=== PATIENT | female | born 1980 | race African-American/Black ===

== ENCOUNTER 2019-10-05 12:52 | Emergency (ER) | payer MEDICAID ==
[~2019-10-05] VITALS: Ht 172.7 cm; Wt 86.0 kg
[2019-10-05] MEDS ORDERED: KETOROLAC 60MG/2ML VIAL IM NR (13:40)
[2019-10-05] MEDS ORDERED: CYCLOBENZAPRINE 10MG TABLET PO NR (14:00)
[2019-10-05 15:00] VITALS: BP 151/88
== END 2019-10-05 15:01 | disposition home or self-care (01) ==
LOC: ER 12:52
DX: M43.6 Torticollis (principal)
CPT/HCPCS: 81025; 96372; 99283; J1885

== ENCOUNTER 2019-10-12 17:46 | Emergency (ER) | payer MEDICAID ==
[~2019-10-12] VITALS: Ht 165.1 cm; Wt 73.0 kg
[2019-10-12] MEDS ORDERED: KETOROLAC 60MG/2ML VIAL IM ONE (18:45)
[2019-10-12] MEDS ORDERED: ACETAMINOPHEN 325MG TABLET PO ONE (18:45)
[2019-10-12] MEDS ORDERED: CYCLOBENZAPRINE 10MG TABLET PO ONE (18:45)
[2019-10-12 19:55] LABS: CHLORIDE 108 mEq/L (98-107); HEMATOCRIT. 22.4 % (36.0-48.0); HEMOGLOBIN. 7.7 g/dL (12.0-16.0); MEAN CORPUSCULAR HEMOGLOBIN 32.1 pg (28.0-32.0); MEAN CORPUSCULAR VOLUME 93.7 fL (81.0-99.0); MEAN PLATELET VOLUME 9.7 fl (7.4-10.4); PLATELET 61 x1000/uL (130-400); RED BLOOD CELL COUNT 2.39 mill/uL (4.2-5.4); RED CELL DISTRIBUTION WIDTH 16.5 % (11.6-14.6)
[2019-10-12 20:12] LABS: HCG SCREEN NEGATIVE
[2019-10-12] MEDS ORDERED: DIAZEPAM 5 MG TABLET PO ONE (20:15)
[2019-10-12 20:30] VITALS: BP 125/83
[2019-10-12 20:40] LABS: NUCLEATED RED BLOOD CELLS 22 /100 WBC; PLATELET ESTIMATE DECREASED
== END 2019-10-12 20:30 | disposition home or self-care (01) ==
LOC: ER 17:46
DX: S16.1XXA Strain of muscle, fascia and tendon at neck level, initial encounter (principal); M54.12 Radiculopathy, cervical region; D72.819 Decreased white blood cell count, unspecified; D64.9 Anemia, unspecified; K59.00 Constipation, unspecified; Z87.440 Personal history of urinary (tract) infections; Z87.09 Personal history of other diseases of the respiratory system; Z87.442 Personal history of urinary calculi; X58.XXXA Exposure to other specified factors, initial encounter; Y93.89 Activity, other specified; Y92.89 Other specified places as the place of occurrence of the external cause; Y99.8 Other external cause status
CPT/HCPCS: 36415; 70450; 72125; 80053; 84703; 85025; 87040; 93005; 96372; 99285; J1885